=== PATIENT | male | born 1970 | race Caucasian/White ===

== ENCOUNTER 2020-01-30 11:16 | Emergency (ER) | payer BC ==
[2020-01-30 12:09] LABS: #Basophils 0.1 thou/uL (0.0-0.2); #Eosinphils 0.1 thou/uL (0.0-0.7); #Lymphocytes 1.8 thou/uL (1.20-3.40); #Monocytes 0.6 thou/uL (0.11-0.59); #Neutrophils 3.2 thou/uL (1.40-6.50); %Basophils 1.3 % (0.0-1.0); %Eosinophils 2.5 % (0.0-10.0); %Lymphocytes 30.5 % (21.0-51.0); %Monocytes 10.5 % (0.0-10.0); %Neutrophils 55.3 % (42.0-75.0); Hemoglobin 16.7 g/dL (14.0-18.0); Mean Corpuscular HGB CONC 34.6 g/dL (32.0-36.0); Mean Corpuscular Volume 89.6 fL (78.0-98.0); Mean Platelet Volume 7.8 fL (7.4-10.4); Platelet Count 236 thou/uL (130-400); RBC Distribution Width 11.9 % (11.5-14.5); Red Blood Cell (RBC) Count 5.38 mill/uL (4.70-6.10); White Blood Cell (WBC) Count 5.7 thou/uL (4.8-10.8)
[2020-01-30 12:30] LABS: ALT (SGPT) 17 U/L (8-55); AST (SGOT) 17 U/L (5-34); Alkaline Phosphatase 49 U/L (40-110); Anion Gap 13 mmol/L (10-20); BUN (Urea Nitrogen) 13 mg/dL (8.9-20.6); Bilirubin, Total 0.9 mg/dL (0.2-1.2); Calc. Creatinine Clearance 0 mL/min (70-130); Calcium 10.3 mg/dL (7.8-10.44); Carbon Dioxide 29 mmol/L (22-29); Chloride 105 mmol/L (98-107); Estimated GFR-MDRD 65; Globulin 2.4 g/dL (2.4-3.5); Glucose 91 mg/dL (70-105); Lipase 41 U/L (8-78); Potassium 4.6 mmol/L (3.5-5.1); Protein, Total 7.4 g/dL (6.0-8.3); Sodium 142 mmol/L (136-145)
[2020-01-30] MEDS ORDERED: Ondansetron PF 4 MG/2 ML Vial ONE (13:20)
[2020-01-30] MEDS ORDERED: Iopamidol-370 76% 500 ML 1 ML ONE (13:34)
--- NOTE | 2020-01-30 14:21 | CT ---
CT abdomen and pelvis with IV contrast HISTORY: Abdominal pain. Diarrhea. Hematochezia. FINDINGS: The lung bases are clear. The liver, spleen, kidneys, adrenal glands, and pancreas have a n ormal CT appearance. No enlarged lymph nodes or free fluid. Appendix is not inflamed. No evidence of bowel obstruction. A very small amount of abdominal fat protrudes through an umbilical hernia. No bowel content. Ligation clips at the upper right scrotum and the lower left inguinal canal, likely related to prior sterilization procedure. Adjacent to the the left internal inguinal ring is an oval well-circumscribed dystrophic calcification measuring 1.3 cm length by 0.7 cm width. Small area of ad jacent fat scarring. Likely related to prior hernia repair. IMPRESSION: No acute abnormality is are demonstrated to explain the patient's symptoms. Small fat-containing umbilical hernia. Other incidental-type findings as detailed above.
[2020-01-30 15:20] LABS: Bilirubin Negative (Negative); Blood, Urine Negative (Negative); Clarity Clear (Clear); Glucose, Urine (Dipstick) Normal (Negative); Leukocyte Negative Leu/uL (Negative); Nitrite Negative (Negative); Protein, Urine (Dipstick) Negative (Neg-Trace); Urobilinogen Normal mg/dL (Less than 2)
== END 2020-01-30 15:46 | disposition home or self-care (01) ==
LOC: ERS 11:16
DX: R10.30 Lower abdominal pain, unspecified (principal); R11.2 Nausea with vomiting, unspecified; R19.7 Diarrhea, unspecified
CPT/HCPCS: 36415; 74177; 80053; 81003; 83690; 85025; 96361; 96372; 96374; J0500; J2405; Q9967

== ENCOUNTER 2021-04-01 10:17 | Outpatient (CLI) | payer BC | END 2021-04-01 10:18 | disposition home or self-care (01) | LOC: CTENTCT 10:17 | PROVIDERS: ATTEND Specialist | DX: J32.8 Other chronic sinusitis (principal) | CPT/HCPCS: 70486 ==